=== PATIENT | female | born 1995 | race Caucasian/White ===

== ENCOUNTER → 2022-09-10 | Outpatient (CLI) | payer BC | LOC: COL.RAD 09:14 | DX: Q51.3 Bicornate uterus (principal); Q51.9 Congenital malformation of uterus and cervix, unspecified | CPT/HCPCS: A9575 ==

== ENCOUNTER → 2023-07-08 | Outpatient (CLI) | payer BC | LOC: MC.RAD 08:02 | DX: Z12.31 Encounter for screening mammogram for malignant neoplasm of breast (principal) ==